=== PATIENT | female | born 1950 | race Caucasian/White ===

== ENCOUNTER 2020-04-05 11:38 | Emergency (ER) | payer OTHER, MEDICARE ==
[2020-04-05 11:50] VITALS: RESP 18
[2020-04-05] MEDS ORDERED: SODIUM CHLORIDE 0.9% 500 ML 500 ML IV STA (12:09)
[2020-04-05 12:31] LABS: Basophils % (A) 1 %; Eosinophils # (A) 0.2 k/uL (0-0.7); Eosinophils % (A) 3 %; HCT 43.2 % (34.0-46.0); HGB 14.5 gm/dL (11.4-16.0); Lymphocytes # (A) 1.4 k/uL (1.0-4.8); Lymphocytes % (A) 22 %; MCH 32.6 pg (25.0-35.0); MCHC 33.6 g/dL (31.0-37.0); MCV 96.9 fL (80.0-100.0); Mean Platelet Volume 7.5; Monocytes # (A) 0.3 k/uL (0-1.0); Monocytes % (A) 4 %; Neutrophils # (A) 4.5 k/uL (1.3-7.7); Neutrophils % (A) 70 %; Platelet Count 202 k/uL (150-450); RBC 4.46 m/uL (3.80-5.40); RDW 13.1 % (11.5-15.5); WBC 6.4 k/uL (3.8-10.6)
[2020-04-05 12:40] LABS: ALT 11 U/L (4-34); AST 22 U/L (14-36); African American GFR (CKD) >90 (>60 ml/min/1.73 sqM); Albumin 4.4 g/dL (3.5-5.0); Alkaline Phosphatase 63 U/L (38-126); Anion Gap 8 mmol/L; Blood Urea Nitrogen 11 mg/dL (7-17); Calcium 9.2 mg/dL (8.4-10.2); Carbon Dioxide 21 mmol/L (22-30); Chloride 108 mmol/L (98-107); Glucose 118 mg/dL (74-99); Non-African American GFR(CKD) 89 (>60 ml/min/1.73 sqM); Potassium 3.8 mmol/L (3.5-5.1); Sodium 137 mmol/L (137-145); Total Bilirubin 0.3 mg/dL (0.2-1.3)
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
[2020-04-05 14:20] VITALS: BP 165/83; PULSE 77; TEMP 97.5
== END 2020-04-05 14:19 | disposition home or self-care (01) ==
LOC: EC 11:38
DX: S30.1XXA Contusion of abdominal wall, initial encounter (principal); Z79.890 Hormone replacement therapy; Z79.899 Other long term (current) drug therapy; Z91.030 Bee allergy status; Z88.8 Allergy status to other drugs, medicaments and biological substances; Z87.891 Personal history of nicotine dependence; V49.9XXA Car occupant (driver) (passenger) injured in unspecified traffic accident, initial encounter
CPT/HCPCS: 36415; 80053; 85025; 74177; 99284; Q9967

== ENCOUNTER → 2021-10-12 | Outpatient (CLI) | payer MEDICARE ==
--- NOTE | 2021-10-12 16:24 | XR ---
EXAMINATION TYPE: XR cervical spine limited DATE OF EXAM: 10/12/2021 TECHNIQUE: Frontal, lateral, and open mouth view of the cervical spine are obtained. HISTORY: M50.30 M19.031 715.35 worsening pain. COMPARISON: None FINDINGS: The cervical spine is visualized in its entirety from C1 thru the top of T1 level, there i s slight grade 1 anterolisthesis C4 on C5 and grade 1 retrolisthesis C5 on C6, there is grade 1 anter olisthesis C6 on C7 and C7 on T1. Vertebral body heights are maintained. Mild to moderate disc space narrowing C5-C6 level with mild spurring. The pre-vertebral soft tissue appears within normal limits . The C1-C2 articulation shows asymmetric right-sided narrowing on the open-mouth view. There are mu ltilevel uncovertebral facet degenerative changes bilaterally seen best on frontal view. Overlying so ft tissue is unremarkable. IMPRESSION: As above.
--- NOTE | 2021-10-12 16:29 | XR ---
EXAMINATION TYPE: XR Hip Bilateral Complete DATE OF EXAM: 10/12/2021 CLINICAL HISTORY: Bilateral hip pain. TECHNIQUE: AP and frogleg views of the bilateral hips are obtained. COMPARISON: CT abdomen and pelvis April 05, 2020 FINDINGS: Advanced degenerative change left hip joint redemonstrated with marked superior joint space loss showing [id number] formation. There is severe head neck collar spurring in the proximal left femur. Overlying soft tissue is unremarkable. Images of right hip show metallic prosthesis stable and satisfactory in position. No new suspicious s urrounding lucency is seen. Overlying soft tissue is unremarkable. IMPRESSION: As above.
--- NOTE | 2021-10-13 06:49 | XR ---
EXAMINATION TYPE: XR wrist limited bilateral DATE OF EXAM: 10/12/2021 CLINICAL HISTORY: Chronic worsening pain. TECHNIQUE: Frontal and lateral images of the bilateral wrists are obtained. COMPARISON: None FINDINGS: There is no acute fracture/dislocation evident in either wrist. Severe degenerative change base of first metacarpal with marked joint space loss, there is sclerosis along with spurring and harmon bchondral cystic change seen bilaterally slightly more prominent on the left. Scattered subchondral cyst through the carpal bones are present more prominent on the right. Demineralization is seen bilat erally. The overlying soft tissue appears unremarkable bilaterally. IMPRESSION: As above.
== END | disposition home or self-care (01) ==
LOC: RADXRMAIN 15:28
PROVIDERS: ATTEND Family Medicine
DX: M16.12 Unilateral primary osteoarthritis, left hip (principal); M19.031 Primary osteoarthritis, right wrist; M19.032 Primary osteoarthritis, left wrist; M50.322 Other cervical disc degeneration at C5-C6 level; M43.13 Spondylolisthesis, cervicothoracic region; M81.0 Age-related osteoporosis without current pathological fracture; M47.812 Spondylosis without myelopathy or radiculopathy, cervical region
CPT/HCPCS: 72040; 73521

== ENCOUNTER → 2023-12-17 | Outpatient (CLI) | payer MEDICARE ==
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
== END | disposition home or self-care (01) ==
LOC: RADCTMAIN 13:58
PROVIDERS: ATTEND Family Medicine
DX: J92.9 Pleural plaque without asbestos (principal); S22.42XA Multiple fractures of ribs, left side, initial encounter for closed fracture; X58.XXXA Exposure to other specified factors, initial encounter
CPT/HCPCS: 71250

== ENCOUNTER → 2024-05-12 | Outpatient (CLI) | payer MEDICARE | END | disposition home or self-care (01) | LOC: LABWHC1 15:23 | DX: D35.00 Benign neoplasm of unspecified adrenal gland (principal) | CPT/HCPCS: 36415; 82088; 82533; 83835; 84244 ==

== ENCOUNTER → 2024-05-14 | Outpatient (CLI) | payer MEDICARE | END | disposition home or self-care (01) | LOC: LABWHC1 15:10 | DX: D35.00 Benign neoplasm of unspecified adrenal gland (principal) | CPT/HCPCS: 82384; 84585 ==

== ENCOUNTER → 2024-10-07 | Outpatient (CLI) | payer MEDICARE ==
--- NOTE | 2024-10-07 15:45 | CT ---
EXAMINATION TYPE: CT chest wo con DATE OF EXAM: 10/07/2024 COMPARISON: 12/17/2023 CLINICAL INDICATION: Female, 73 years old with history of R09.1 PLEURISY; PHH, pleurisy TECHNIQUE: CT scan of the thorax is performed without IV contrast. CT DLP: 187.[address] CTDI: mGy Automated exposure control for dose reduction was used. FINDINGS: There is a stable 8-9 mm juxtapleural nodule involving the pleura of the left lung base. There are a few scattered stable micronodules bilaterally. There are no new or suspicious lung masses or nodules. No airspace consolidation. There are mild bibasilar interstitial densities consistent with mild inter stitial scarring. There is no pleural effusion or pneumothorax. The great vessels and heart are normal in size. There is no mediastinal, hilar or axillary adenopathy. Limited scanning through the upper abdomen reveals no gross abnormality. No focal osseous lesions are seen. IMPRESSION: 1. Stable left lower lobe juxtapleural nodule in micronodules. 2. No acute cardiopulmonary disease. 3. Mild chronic interstitial changes in the lung bases [facility], , 10/07/2024 3:42 PM
== END | disposition home or self-care (01) ==
LOC: RADCTMAIN 14:53
PROVIDERS: ATTEND Family Medicine
DX: R09.1 Pleurisy (principal); R91.1 Solitary pulmonary nodule; J84.89 Other specified interstitial pulmonary diseases
CPT/HCPCS: 71250